=== PATIENT | male | born 1965 | race Caucasian/White ===

== ENCOUNTER → 2016-06-03 | Outpatient (CLI) | payer BC ==
--- NOTE | ~2016-06-03 | CT71 ---
[facility] A Service [facility] RADIOLOGY TEXT RESULTS PATIENT: AIDAN SUNG LOCATION: [facility] : 65 UNIT #: [id number] AGE: [address]: Prateek Fuentes MD SEX: M ORDER DR: [id number] [facility]. [place], [place] [address] [id number] O MR#: [id number] Acc #: [id number] NAME: AIDAN SUNG : 1965 SEX: M STUDY DATE/TIME: 06/03/2016 7:56 UNIT: [facility] ROOM: STUDY DESCRIPTION: CT Head Wo Contrast Attending Physician: Prateek Fuentes M.D. Referring Physician: Prateek Fuentes M.D. Ordering Physician: Prateek Fuentes M.D. Primary Care Physician: Prateek Fuentes M.D. MEDICAL IMAGING REPORT This report is preliminary unless electronic signature is present EXAM CT brain without contrast media. HISTORY History of migraine headaches since age 14. Blurred peripheral vision lasting 15-20 minutes. Symptoms chronic. TECHNIQUE Transaxial imaging of the brain was performed without contrast media. This CT exam was performed with one or more of the following radiation dose reduction techniques: automatic exposure control, adjustment of mA and/or kV according to patient size, and iterative reconstruction. FINDINGS Ventricular size and configuration is normal. No intra or extraaxial mass lesions, fluid collections, or mass effect. No focal areas of low attenuation or evidence of intracranial hemorrhage. Mild plaque deposition is seen in the vertebral arteries and carotid siphons. Bone windows are reviewed. Mastoid air cells are normally aerated. There is mucosal disease in the ethmoid sinuses bilaterally and minimal mucosal disease in the right sphenoid sinus. CONCLUSION 1. Normal noncontrast CT of the brain. 2. Minimal atherosclerotic disease. 3. Ethmoid and sphenoid chronic sinus disease. Dictated by... Vimal Leger M.D. [facility] A Service [facility] RADIOLOGY TEXT RESULTS PATIENT: AIDAN SUNG LOCATION: [facility] : 65 UNIT #: [id number] AGE: [address]: Prateek Fuentes MD SEX: M ORDER DR: THIS IS AN ELECTRONICALLY VERIFIED REPORT Vimal Leger M.D. at 06/03/2016 4:52 PM Ramiro TD: 06/03/2016 09:19 JOB #: [id number] MEDICAL IMAGING REPORT Page 1 of 1 COPY
== END | disposition home or self-care (01) ==
LOC: CCAT 07:40
DX: R51 Headache (principal); J32.2 Chronic ethmoidal sinusitis; J32.3 Chronic sphenoidal sinusitis
CPT/HCPCS: 70450